=== PATIENT | female | born 1940 | race Two or more races ===

== ENCOUNTER 2022-04-23 06:40 | Day surgery (SDC) | payer OTHER ==
[~2022-04-23 06:40] MED LIST: ENALAPRIL MALEA10 MG PO; LIPITOR20 MG PO; SYNTHROID88 MCG PO; TOPROL XL25 M1 PO; TYLENOL ARTHRI650 MG PO; ZOLOFT100 MG PO
== END 2022-04-23 14:50 | disposition home or self-care (01) ==
LOC: CIR.AMB 06:40
PROVIDERS: ATTEND Orthopaedic Surgery Hand Surgery
DX: S52.022A Displaced fracture of olecranon process without intraarticular extension of left ulna, initial encounter for closed fracture (principal); I10 Essential (primary) hypertension; E78.5 Hyperlipidemia, unspecified; F17.210 Nicotine dependence, cigarettes, uncomplicated; E03.9 Hypothyroidism, unspecified